=== PATIENT | female | born 1985 | race Caucasian/White ===

== ENCOUNTER 2017-09-14 19:50 | Emergency (ER) | END 2017-09-15 01:10 | disposition home or self-care (01) ==

== ENCOUNTER 2018-04-30 23:34 | Emergency (ER) | END 2018-05-01 05:07 | disposition home or self-care (01) ==

== ENCOUNTER 2018-10-24 10:16 | Outpatient (CLI) | payer OTHER ==
[~2018-10-24] VITALS: Ht 154.9 cm; Wt 87.7 kg
[~2018-10-24 10:16] MED LIST: ACET500C5 PO; AZIT250T PO; FAMO-96 PO; IBUP800T48 PO; ONDA4TAB8 PO
[2018-10-24 11:57] VITALS: Ht 154.9 cm; Wt 87.7 kg
[2018-10-24] MEDS ORDERED: PREN-93 PO (11:57)
[2018-10-24 11:58] VITALS: BP 129/62; PULSE 84; RESP 18
--- NOTE | 2018-10-24 13:24 | PN ---
Triage Information Date/Time 10/24/2018 Reason for visit: Was admitted to rule out -induced hypertension Weeks of Gestation 34+ week /Para 4 para 3 Diabetes: none Hypertention: none Objective Vital Signs Date Temp Pulse Resp B/P (MAP) Pulse Ox O2 O2 Flow FiO2 Time Delivery Rate 10/24/18 84 18 129/62 Room Air 11:58 (84) Heart Rate: 140's Heart Rate Comments Reactive Contractions: None Exam Patient did not have any contractions Results/Medications Result Diagram: 10/24/18 1134 10/24/18 1134 Results 24 hrs Laboratory Tests Test 10/24/18 11:30 10/24/18 11:34 Urine Color YELLOW Urine Clarity SLIGHTLY CLOUDY A Urine pH 6.0 Urine Specific [place] 1.018 Urine Ketones NEGATIVE Urine Nitrite NEGATIVE Urine Bilirubin NEGATIVE Urine Urobilinogen 1+ H Urine Leukocyte Esterase 3+ H Urine Microscopic RBC 15 H Urine Microscopic WBC 3 Urine Squamous Epithelial Cells MANY A Urine Bacteria FEW A Urine Mucus FEW A Urine Hemoglobin NEGATIVE Urine Glucose NEGATIVE Urine Total Protein NEGATIVE White Blood Count 13.0 H Red Blood Count 4.54 Hemoglobin 11.6 L Hematocrit 36.0 L Mean Corpuscular Volume 79.3 L Mean Corpuscular Hemoglobin 25.6 L Mean Corpuscular Hemoglobin Concent 32.2 Red Cell Distribution Width 15.9 H Platelet Count 301 # Mean Platelet Volume 10.4 Immature Granulocytes % 1.200 H Neutrophils % 76.6 Lymphocytes % 16.0 Monocytes % 4.9 Eosinophils % 1.0 Basophils % 0.3 Nucleated Red Blood Cells % 0.0 Immature Granulocytes # 0.150 H Neutrophils # 10.0 H Lymphocytes # 2.1 Monocytes # 0.6 Eosinophils # 0.1 Basophils # 0.0 Nucleated Red Blood Cells # 0.0 Prothrombin Time 12.1 Prothrombin Time Ratio 0.9 INR International Normalized Ratio 0.89 Activated Partial Thromboplast Time 24.3 Fibrinogen 460.0 Sodium Level 136 Potassium Level 3.5 Chloride Level 103 Carbon Dioxide Level 26 Anion Gap 7 Blood Urea Nitrogen 7 Creatinine 0.55 Est Glomerular Filtrat Rate mL/min > 60 Glucose Level 95 Uric Acid 3.4 Calcium Level 9.2 Total Bilirubin 0.0 L Direct Bilirubin 0.00 Indirect Bilirubin 0.0 Aspartate Amino Transf (AST/SGOT) 18 Alanine Aminotransferase (ALT/SGPT) 10 L Alkaline Phosphatase 99 Total Protein 7.3 Albumin 3.9 Globulin 3.40 H Albumin/Globulin Ratio 1.14 Imaging Results Biophysical profile score = 8/8 Disposition: Discharge Assessment/Plan Patient had normal blood pressure throughout the observation. Will follow patient as outpatient GUSTABO SHEPARD MD Oct 24, 2018 13:24
--- NOTE | 2018-10-24 13:32 | TRIAGE ---
OB Triage Datetime Report Generated by CPN: 10/24/2018 13:32 Datetime: 10/24/2018 12:37 Labor Evaluation Frequency: 0 Monitor Mode: External Pattern: Normal: <= 5 Contractions in 10 Minutes Resting Tone [place]: Relaxed Contraction Comments: DENIES FEELING ANY UCS Heart Rate FHR Baseline Rate: 130 Monitor Mode: External US Variability: Moderate 6-25 bpm Accelerations: 15X15 Decelerations: None Category: Category I Datetime: 10/24/2018 12:02 Comments: U/S COMPLETED, NST STARTED Datetime: 10/24/2018 11:44 Time of Arrival: 10/24/2018 10:12 EGA: 33.4 Arrived By: Ambulatory Arrived From: Dr. Lozada Chief Complaint: SENT IN [facility] WITH BP 134/73 AND ORDERS FOR [facility] LABS AND U/S Movement: Present Contractions: Denies/Absent Rupture of Membranes: Denies Vaginal Bleeding: None Vaginal Discharge: Denies Recent Sexual Intercouse: Denies Abdominal Trauma: Not Applicable Patient Complaints: None Additional Patient Complaints: C/O H/A YESTERDAY BUT NOT TODAY Time Provider Notified: 10/24/2018 12:38 Provider Notified: CASI Initial Plan: U/A, PIH LABS, U/S AND NST ORDERED Datetime: 10/24/2018 11:40 Assessment Type: Triage Maternal Assessment Level of Consciousness: Fully Conscious DTR's/Clonus: DTRs 2+; No Clonus Headache: Denies Blurred Vision: No Respiratory Effort: Unlabored; Regular Rhythm; Equal Expansion Breath Sounds, Left: Clear and Equal Breath Sounds, Right: Clear and Equal Nausea/Vomiting: Denies RUQ Epigastric Pain: Denies Lower Extremities Edema: Bilateral Lower Extremities Degree: 1+ Upper Extremities Edema: None Degree: None Facial Edema: None Fall Risk Assessment History of Falling: (0) No Secondary Diagnosis: (0) No Ambulatory Aid: (0) Bedrest/Nurse Assist IV Therapy: (0) No Gait: (0) Normal/Bedrest/Immobile Mental Status: (0) Oriented to Own Ability Fall Score: 0 Fall Risk Score Definition: No Risk: No action required
== END 2018-10-24 13:30 | disposition home or self-care (01) ==
LOC: OBT 10:16 → L-D 12:00 → OBT 13:30
PROVIDERS: ATTEND Obstetrics & Gynecology
DX: O13.3 Gestational [pregnancy-induced] hypertension without significant proteinuria, third trimester (principal); Z3A.37 37 weeks gestation of pregnancy
CPT/HCPCS: 76818; 80053; 81001; 84560; 85025; 85384; 85610; 85730; Z7500; G0463

== ENCOUNTER 2018-12-10 09:00 | Inpatient (IN) | payer OTHER ==
[~2018-12-10] VITALS: Ht 152.4 cm; Wt 90.0 kg
[~2018-12-10 09:00] MED LIST changes: -AZIT250T PO; -FAMO-96 PO; -IBUP800T48 PO; -ONDA4TAB8 PO; +PREN-93 PO
[2018-12-10 09:53] VITALS: Ht 152.4 cm; Wt 90.0 kg
[2018-12-10 10:04] VITALS: BP 145/77; PULSE 112; RESP 20
[2018-12-10] MEDS ORDERED: AMPICILLIN 2 GM/NS (PMX) 100 ML IV ONE (10:30)
[2018-12-10] MEDS ORDERED: MINERAL OIL LIGHT 10 ML VIAL TOP ONE (10:30)
[2018-12-10] MEDS ORDERED: BUTORPHANOL 2 MG INJ IV PRN (10:30)
[2018-12-10] MEDS ORDERED: CARBOPROST 250 MCG INJ IM PRN (10:30)
[2018-12-10] MEDS ORDERED: OXYTOCIN 30 UNITS/LR 500 ML IV SCH ×3 (10:30→12:00)
[2018-12-10] MEDS ORDERED: OXYTOCIN 30 UNITS/LR 500 ML IV PRN (10:30)
[2018-12-10] MEDS ORDERED: METHYLERGONOVINE 0.2 MG INJ IM PRN (10:30)
[2018-12-10] MEDS ORDERED: LIDOCAINE 1% (MPF) 30 ML INJ INJ PRN (10:30)
[2018-12-10] MEDS ORDERED: IBUPROFEN 600 MG TAB PO PRN (10:30)
[2018-12-10] MEDS ORDERED: MISOPROSTOL 200 MCG TAB PR PRN (10:30)
[2018-12-10] MEDS: LACTATED RINGER'S 1,000 ML IV SCH ×4 (11:02→22:46)
--- NOTE | 2018-12-10 14:34 | PREAC ---
Date/Time of Note Date/Time of Note DATE: 12/10/18 TIME: 14:34 Anesthesia Eval and Record Evaluation Time Pre-Procedure Interview DATE: 12/10/18 TIME: 14:34 Age 33 Sex female NPO: 8 hrs Preoperative diagnosis labor pain Planned procedure labor epidural Past Medical History Past Medical History: None Surgery & Anesthesia Issues No known issue Meds Anticoagulation: No Beta David within 24 hr: No Reason Beta David not given: Pt. not on B-David Active Scripts Acetaminophen* (Tylophen*) 500 Mg Capsule, 1 CAP PO Q6H PRN for PAIN AND OR ELEVATED TEMP, #20 CAP Prov:MURPHY PATEL CAMARILLO [employer]ior [employer] 05/01/18 Reported Medications Vit No.124/Iron/FA ( Vitamin Tablet) 1 Each Tablet, 1 EACH PO DAILY, TAB 10/24/18 Current Medications Lactated Ringer's 1,000 ml @ 125 mls/hr Q8H IV Last administered on 12/10/18at 11:02; Admin Dose 125 MLS/HR; Start 12/10/18 at 10:06 Ampicillin 50 ml @ 100 mls/hr Q4H IV ; Start 12/10/18 at 14:30 Butorphanol Tartrate (Stadol) 2 mg Q2H PRN IV .PAIN; Start 12/10/18 at 10:30 Lidocaine (Xylocaine 1% (Mpf)) 30 ml ONCE PRN INJ .EPISIOTOMY; Start 12/10/18 at 10:30 Oxytocin/Lactated Ringer's 500 ml @ 500 mls/hr ONCE POST IV ; Start 12/10/18 at 10:30 Oxytocin/Lactated Ringer's 500 ml @ 125 mls/hr POST IV ; Start 12/10/18 at 10:30 Ibuprofen (Motrin) 600 mg ONCE PRN PO .PAIN 1-5; Start 12/10/18 at 10:30 Oxytocin/Lactated Ringer's 500 ml @ 0 mls/hr ONCE PRN IV .VAGINAL BLEEDING; Start 12/10/18 at 10:30 Methylergonovine Maleate (Methergine) 0.2 mg ONCE PRN IM .VAGINAL BLEEDING; Start 12/10/18 at 10:30 Carboprost Tromethamine (Hemabate) 250 mcg ONCE PRN IM .VAGINAL BLEEDING; Start 12/10/18 at 10:30 Misoprostol (Cytotec) 1,[address] .VAGINAL BLEEDING; Start 12/10/18 at 10:30 Oxytocin/Lactated Ringer's 500 ml @ 0 mls/hr FOR INDUCTION IV Last administered on 12/10/18at 12:00; Admin Dose 1 MLS/HR; Start 12/10/18 at 12:00 Meds reviewed: Yes Allergies Coded Allergies: No Known Allergy (Verified , 12/10/18) Allergies Reviewed: Yes Labs/Studies Labs Reviewed: Reviewed by anesthesiologist Result Diagram: 12/10/18 1023 Laboratory Tests 12/10/18 10:23 Blood Bank Test 12/10/18 10:06 Antibody Screen NEGATIVE Blood Type A POSITIVE Rh Immune Globulin Candidate NO test: Positive Pre-procedure Exam Last vitals Vital Signs Date Temp Pulse Resp B/P (MAP) Pulse Ox O2 O2 Flow FiO2 Time Delivery Rate 12/10/18 98.5 112 20 145/77 Room Air 10:04 (99) Airway: Adequate mouth opening, Adequate thyromental dist Mallampati: Mallampati III Teeth: Normal Lung: Normal Heart: Normal ASA Physical Status ASA physical status: 2 Emergency: None Planned Anesthetic Neuraxial: Epidural Planned Pain Management Epidural, Parenteral pain med, Other neuraxial med Pre-operative Attestations Prior to commencing anesthesia and surgery, the patient was re-evaluated, there was verification of: *The patient's identity *The results of appropriate recent lab work and preoperative vital signs *The above evaluation not changing prior to induction *Anesthetic plan, risk benefits, alternative and complications discussed with patient/family; questions answered; patient/family understands, accepts and wishes to proceed. JULIANNE SHIRLEY MD Dec 10, 2018 14:34
[2018-12-10] MEDS ORDERED: FENTAnyl 2MCG/ML-ROPIV 0.2% 100 ML ONE (14:45)
[2018-12-10] MEDS ORDERED: HYDROCODONE/APAP (5/325) TAB PO PRN (15:00)
[2018-12-10] MEDS ORDERED: KETOROLAC 30 MG INJ IV PRN (15:00)
[2018-12-10] MEDS ORDERED: NALOXONE (0.4 MG/ML) INJ IV PRN (15:00)
[2018-12-10] MEDS ORDERED: ONDANSETRON 4 MG INJ IV PRN (15:00)
[2018-12-10] MEDS ORDERED: DIPHENHYDRAMINE 50 MG INJ IV PRN (15:00)
[2018-12-10] MEDS ORDERED: ZOLPIDEM 5 MG TAB PO PRN (15:00)
[2018-12-10] MEDS ORDERED: HYDROmorphONE 0.5 MG/0.5 ML SYG IV PRN ×2 (15:00)
[2018-12-10] MEDS: AMPICILLIN 1 GM/NS (PMX) 50 ML IV SCH ×3 (15:37→22:46)
--- NOTE | 2018-12-10 17:03 | PAC ---
Date/Time of Note Date/Time of Note DATE: 12/10/18 TIME: 17:03 Post-Anesthesia Notes Post-Anesthesia Note Last documented vital signs Vital Signs Date Temp Pulse Resp B/P (MAP) Pulse Ox O2 O2 Flow FiO2 Time Delivery Rate 12/10/18 98.5 112 20 145/77 Room Air 10:04 (99) Activity: WNL Respiratory function: WNL Cardiovascular function: WNL Mental status: Baseline Pain reasonably controlled: Yes Hydration appropriate: Yes Nausea/Vomiting absent: Yes JULIANNE SHIRLEY MD Dec 10, 2018 17:03
--- NOTE | 2018-12-10 18:00 | HP ---
Date/Time of Note Date/Time of Note DATE: 12/10/18 TIME: 17:57 OB - History Hx of Present Free Text/Dictation 33-year-old female 4 para 340+ weeks gestation admitted for elective induction of labor Last Menstrual Period: Mar 03, 2018 Estimated Due Date: Dec 08, 2018 : 4 Para: 3 Care: Good Care Ultrasounds: Normal mid trimester US Past Family/Social History * Past Medical, Surgical, Family and Obstetric Histories reviewed from chart. Blood Type: A+ Rubella: immune RPR/VDRL: Negative GBS Status: Positive HBsAG: Negative OB Admission Exam Vital Signs Vital Signs Vital Signs Date Temp Pulse Resp B/P (MAP) Pulse Ox O2 O2 Flow FiO2 Time Delivery Rate 12/10/18 98.5 112 20 145/77 Room Air 10:04 (99) Physical Exam HEENT: WNL Heart: Rhythm Normal Lungs: Clear, Equal Abdomen: WNL Extremities: Normal Reflexes: Normal Cervical Dilatation: 2cm Effacement: 50% Station: -3 Membranes: Intact Heart Rate: 140's Accelerations: Accelerations Present Decelerations: No Decelerations Varibility: Marked Contractions on Admission: None Last 72 hours Lab Results CBC & BMP 12/10/18 10:23 OB Assessment/Plan Reason for admission: induction of labor Other Assessment: Term gestation Other plan: Start labor augmentation using GUSTABO Espinoza MD Dec 10, 2018 18:00
[2018-12-11] MEDS: FENTAnyl 2MCG/ML-ROPIV 0.2% 100 ML BAG EPI SCH (02:30)
[2018-12-11] MEDS: AMPICILLIN 1 GM/NS (PMX) 50 ML IV SCH ×3 (03:02→10:30)
[2018-12-11] MEDS: LACTATED RINGER'S 1,000 ML IV SCH (06:21)
--- NOTE | 2018-12-11 09:17 | LDN ---
Date/Time of Note Date/Time of Note DATE: 12/11/18 TIME: 09:15 Delivery Summary 33-year-old with single intrauterine at 40 weeks and 3 days delivered a viable male over intact perineum. Nose and mouth suctioned. Rest of body delivered. Cord clamped and cut after stopping pulsation. Baby given to the nurse. Placenta delivered spontaneously and intact with three- vessel cord. Patient tolerated procedure well Time of delivery 08:58 Weight 3280 g - 7 pound 4 ounces 8 at 1 minutes and 9 at 5 minutes EBL 300 mL Weeks of Gestation 40 weeks and 3 days Placenta Delivered: Spontaneously Meconium: none Episiotomy: No Estimated blood loss: 300 Sponge & Needle done & correct: Yes All needle counts correct: Yes Any foreign bodies felt in the: No Infant Delivery Information Sex Infant Sex: male Apgars 1 Minute: 8 5 Minute: 9 10 Minute: 10 Suctioning Nose & mouth suctioned at merary: Yes Umbilical Cord Umbilical cord with: 3 Vessels Cord presentations: no nuchal cord Cord Blood was obtained: Yes Mother & Baby Disposition Disposition Mom & Baby to Maternity; Good: Yes CONNIE GRAY Dec 11, 2018 09:17
[2018-12-11 11:15] VITALS: BP 137/67; PULSE 80; RESP 18
[2018-12-11] MEDS ORDERED: OXYTOCIN 30 UNITS/LR 500 ML IV PRN (12:00)
[2018-12-11] MEDS ORDERED: WITCH HAZEL/GLYCERIN PAD PR PRN (12:00)
[2018-12-11] MEDS ORDERED: SENNA/DOCUSATE NA (8.6MG/50MG) TAB PO PRN (12:00)
[2018-12-11] MEDS ORDERED: MISOPROSTOL 200 MCG TAB PR PRN (12:00)
[2018-12-11] MEDS ORDERED: ACETAMINOPHEN 325 MG TAB PO PRN (12:00)
[2018-12-11] MEDS ORDERED: ZOLPIDEM 5 MG TAB PO PRN (12:00)
[2018-12-11] MEDS ORDERED: DIPHENHYDRAMINE 50 MG INJ IV PRN (12:00)
[2018-12-11] MEDS ORDERED: ONDANSETRON 4 MG INJ IV PRN (12:00)
[2018-12-11] MEDS ORDERED: CARBOPROST 250 MCG INJ IM PRN (12:00)
[2018-12-11] MEDS ORDERED: LANOLIN HPA 1 PKT TOP PRN (12:00)
[2018-12-11] MEDS ORDERED: DIBUCAINE 1% 30 GM OINT TOP PRN (12:00)
[2018-12-11] MEDS ORDERED: METHYLERGONOVINE 0.2 MG INJ IM PRN (12:00)
[2018-12-11] MEDS ORDERED: BENZOCAINE 20% 56 ML SPRAY TOP PRN (12:00)
[2018-12-11] MEDS: IBUPROFEN 600 MG TAB PO SCH ×3 (12:00→23:51)
[2018-12-11 12:15] VITALS: BP 138/68; PULSE 93; RESP 18
[2018-12-11] MEDS: LACTATED RINGER'S 1,000 ML IV* SCH (12:50)
[2018-12-11 16:00] VITALS: BP 122/60; PULSE 92; RESP 18
[2018-12-11] MEDS: CEPHALEXIN 500 MG CAP PO SCH ×2 (18:49→23:51)
[2018-12-11 19:50] VITALS: BP 117/68; PULSE 85; RESP 19
[2018-12-11] MEDS: OXYCODONE/ASPIRIN (4.88/325) TAB PO PRN (23:56)
[2018-12-12 04:00] VITALS: BP 115/66; PULSE 93; RESP 18
[2018-12-12] MEDS: IBUPROFEN 600 MG TAB PO SCH ×3 (05:52→20:31)
[2018-12-12] MEDS: CEPHALEXIN 500 MG CAP PO SCH ×3 (05:52→20:31)
[2018-12-12 08:00] VITALS: BP 122/57; PULSE 86; RESP 18
[2018-12-12] MEDS: OXYCODONE/ASPIRIN (4.88/325) TAB PO PRN ×2 (08:13→11:39)
--- NOTE | 2018-12-12 14:51 | DS ---
Date/Time of Note Date/Time of Note Home today or next day DATE: 12/12/18 TIME: 14:50 Obstetrical Discharge Record Final Diagnosis Final Diagnosis: Term delivered Other Final Diagnosis Status post vaginal delivery Vaginal Delivery Obstetrical Delivery: Spontaneous Complications Augmentation: Yes Condition on Discharge Physical Assessment Last Vitals: See nurse's notes Voiding: Yes Bowel Movement: Yes Breast: Soft, non-tender, Filling Fundus: Firm Abdomen and Incision: Abdomen is soft with present bowel sounds and fundus is firm Episiotomy: Perineum is clean Calf Tenderness: No Patient Condition: Good GUSTABO SHEPARD MD Dec 12, 2018 14:51
--- NOTE | 2018-12-12 14:52 | PD.PPDC ---
FRY COOK Discharge Instruction Provider Information Physician Information 33-year-old female had vaginal delivery Diagnosis [id number] Final Diagnosis: [id number] Status post vaginal delivery Condition [id number] Patient Condition: [id number] Good Diet [id number] Diet: Fzvks1y Resume Regular Diet Activity/Restrictions [id number] Activity: [id number] Normal Activity May Shower [id number] Restrictions: [id number] Nothing in the Vagina [id number] Return to Work or School: [id number] January 27, 2019 Follow-up Follow-up with Physician: 2, 4, Week/Weeks (In clinic) Return to clinic for [id number] OB Instructions: Vfbne4p Breast Tenderness Depression Comment: Pelvic rest for 6 weeks GUSTABO SHEPARD MD Dec 12, 2018 14:52
[2018-12-12] MEDS ORDERED: IBUP-1542 PO (14:53)
[2018-12-12 16:00] VITALS: BP 143/85; PULSE 90; RESP 18
[2018-12-12 19:55] VITALS: BP 119/75; PULSE 67; RESP 18
[2018-12-12] MEDS: LACTATED RINGER'S 1,000 ML IV* SCH ×3 (20:26→21:13)
[2018-12-12] MEDS: DEXTROSE 5%-LR 1,000 ML IV SCH ×2 (20:26→21:08)
[2018-12-12] MEDS: LACTATED RINGER'S 1,000 ML IV SCH ×2 (20:26→21:08)
[2018-12-13] MEDS: CEPHALEXIN 500 MG CAP PO SCH ×3 (00:39→12:32)
[2018-12-13] MEDS: IBUPROFEN 600 MG TAB PO SCH ×3 (00:40→12:32)
[2018-12-13] MEDS: LACTATED RINGER'S 1,000 ML IV* SCH ×2 (03:57→11:57)
[2018-12-13 04:20] VITALS: BP 118/70; PULSE 70; RESP 18
[2018-12-13] MEDS: OXYCODONE/ASPIRIN (4.88/325) TAB PO PRN (08:26)
[2018-12-13 08:30] VITALS: BP 113/61; PULSE 72; RESP 18
[2018-12-13] MEDS ORDERED: MEASLES,MUMPS,RUBELLA VACCINE INJ SC* ONE (09:00)
[2018-12-13] MEDS ORDERED: DIPHTH/TET/ACEL PERTUSS (ADULT) 0.5 ML VIAL IM* ONE (09:00)
--- NOTE | 2018-12-14 18:23 | DELSUM ---
Delivery Summary A-C Datetime Report Generated by CPN: 12/14/2018 18:23 DELIVERY PERSONNEL Optomechanical Technician: Eliot Sheriff MATERNAL INFORMATION Delivery Anesthesia: Epidural Medications in Delivery: LR with 30 units pitocin, Cytotec 200mcg Delivery QBL (ml): 300 Placenta Cultured: No Maternal Complications: None LABOR SUMMARY EDC: 12/08/2018 00:00 No. Babies in Womb: 1 Attempted: No Labor Anesthesia: Epidural LABOR INFORMATION Reason for Induction: Postterm Onset of Labor: 12/10/2018 15:30 Complete Dilatation: 12/11/2018 06:53 Oxytocin: Induction Group B Beta Strep: Positive Antibiotics # of Doses: Ampicillin x6 Antibiotics Time of Last Dose: 12/11/2018 06:30 Steroids Given: None Reason Steroids Not Administered: Not Applicable MEMBRANES Membranes Rupture Method: Spontaneous Rupture of Membranes: 12/10/2018 16:33 Length of Rupture (hr): 16.42 Amniotic Fluid Color: Clear Amniotic Fluid Amount: Scant Amniotic Fluid Odor: None STAGES OF LABOR Stage 1 hr: 15 Stage 1 min: 23 Stage 2 hr: 2 Stage 2 min: 5 Stage 3 hr: 0 Stage 3 min: 2 Total Time in Labor hr: 17 Total Time in Labor min: 30 VAGINAL DELIVERY Episiotomy: None Laceration Extension: N/A Laceration Type: None Laceration Repair: Not Applicable Initial Vag Sponge Count: 10 Final Vag Sponge Count: 10 Initial Vag Sharps Count: 1 Final Vag Sharps Count: 1 Sponge Count Correct: Yes; Vaginal Sweep Performed Sharps Count Correct: Yes BABY A INFORMATION Infant Delivery Date/Time: 12/11/2018 08:58 Method of Delivery: Vaginal Born in Route : No : N/A Forceps: N/A Vacuum Extraction: N/A Shoulder Dystocia : N/A SHOULDER DYSTOCIA BABY A Delivery Date/Time: 12/11/2018 08:58 PRESENTATION/POSITION BABY A Presentation: Cephalic Cephalic Presentation: Vertex Breech Presentation: N/A PLACENTA INFORMATION BABY A Placenta Delivery Time : 12/11/2018 09:00 Placenta Method of Delivery: Spontaneous Placenta Status: Delivered SCORES BABY A Heart Rate 1 min: >100 bpm Resp Effort 1 min: Good Cry Reflex Irritability 1 min: Cough/Sneeze/Pulls Away Muscle Tone 1 min: Some Flexion of Extrem Color 1 min: Body [place], Extremit Blue Resuscitation Effort 1 min: Tactile Stimulation SCORE 1 MIN: 8 Heart Rate 5 min: >100 bpm Resp Effort 5 min: Good Cry Reflex Irritability 5 min: Cough/Sneeze/Pulls Away Muscle Tone 5 min: Active Motion Color 5 min: Body [place], Extremit Blue Resuscitation Effort 5 min: Tactile Stimulation SCORE 5 MIN: 9 INFORMATION BABY A Gestational Age at Delivery: 40.3 Gestational Status: Full Term- 39- 40.6 Weeks Infant Outcome : Liveborn Condition : Stable Sex: Male IDENTIFICATION/MEDS BABY A ID Band Number: [id number] ID Band Location: Right Leg; Left Arm Sensor Applied: Yes Sensor Number: [id number] Sensor Location : Cord Clamp Vitamin K Given : Not Given Erythromycin Given: Not Given WEIGHT/LENGTH BABY A Birthweight (gm): 3280 Weight (lb): 7 Weight (oz): 4 Infant Length (in): 20.00 Length (cm): 50.80 CORD INFORMATION BABY A No. Cord Vessels: 3 Nuchal Cord : N/A Cord Blood Taken: Yes Suction: Mouth; Nose ASSESSMENT BABY A Complications: Multiple Late Decels; Multiple Variable Decels Physical Findings at Delivery: Within Normal Limits Infant Respirations: Appears Normal Advertising Analyst/ALS Called : No Infant Care By: Ruth RN, Thomas RT Transferred To: Remains with Mother
== END 2018-12-13 18:22 | disposition home or self-care (01) | DRG 807 ==
LOC: L-D 09:38 → PP1 12-11 11:10
PROVIDERS: ADMIT Obstetrics & Gynecology; ATTEND Obstetrics & Gynecology
PROC: 3E033VJ Introduction of Other Hormone into Peripheral Vein, Percutaneous Approach (ICD-10-PCS; 2018-12-10)
PROC: 10E0XZZ Delivery of Products of Conception, External Approach (ICD-10-PCS; principal; 2018-12-11)
DX: O48.0 Post-term pregnancy (principal); Z37.0 Single live birth; Z3A.40 40 weeks gestation of pregnancy
CPT/HCPCS: 76815; 85025; 85610; 85730; 86592; 86850; 86900; 86901; 87340; 99464; J0290; J2590; J3010; J7120; J7121